=== PATIENT | female | born 2000 | race Two or more races ===

== ENCOUNTER 2024-08-24 14:56 | Emergency (ER) | payer OTHER ==
[~2024-08-24] VITALS: Ht 167.6 cm; Wt 72.7 kg
[2024-08-24 16:08] VITALS: BP 116/79; PULSE 92; RESP 14; TEMP 97.6; O2SAT 99
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
[2024-08-24] MEDS: HYDROcodone-ACET 10/325MG TAB PO ONE (16:43)
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
[2024-08-24] MEDS ORDERED: NAP500T PO (17:27)
[2024-08-24] MEDS ORDERED: LIDO5DIS21 TOP (17:27)
[2024-08-24] MEDS ORDERED: METH-1181 PO (17:27)
== END 2024-08-24 17:28 | disposition home or self-care (01) ==
LOC: EDBD 14:56 → ER 14:56
DX: M54.50 Low back pain, unspecified (principal); M54.9 Dorsalgia, unspecified; M54.2 Cervicalgia; Z79.1 Long term (current) use of non-steroidal anti-inflammatories (NSAID); V89.2XXA Person injured in unspecified motor-vehicle accident, traffic, initial encounter; Y93.89 Activity, other specified; Y92.411 Interstate highway as the place of occurrence of the external cause; Y99.8 Other external cause status
CPT/HCPCS: 72070; 72100